=== PATIENT | male | born 1995 | race Caucasian/White ===

== ENCOUNTER 2017-01-15 14:33 | Emergency (ER) | payer OTHER ==
--- NOTE | ~2017-01-15 | CR63 ---
[facility] A Service of [facility] & [facility] RADIOLOGY TEXT RESULTS PATIENT: KENNETH NAJERA LOCATION: SED : [birth year] UNIT #: [id number] AGE: [address]: Radha Phipps SEX: M ORDER DR: [id number] [address] [address] [id number] E MR#: [id number] Acc #: [id number] NAME: KENNETH NAJERA : 1995 SEX: M STUDY DATE/TIME: 01/15/2017 15:10 UNIT: SED ROOM: STUDY DESCRIPTION: CR Chest 2 View Attending Physician: Radha Phipps Pa-C Ordering Physician: Physician Non-Staff MEDICAL IMAGING REPORT This report is preliminary unless electronic signature is present. EXAM PA and lateral chest HISTORY Cough and congestion for 3 weeks. FINDINGS 2 views of the chest demonstrate focal moderately dense subsegmental infiltrate in the posteromedial left lower lobe. Although nonspecific, this could be due to pneumonia. Correlation to the patient's history and symptoms is recommended, and short-term followup chest x-ray is suggested to document resolution after appropriate assessment and treatment. Remainder of the lungs are clear. Cardiac size and pulmonary vascularity are normal. Dictated by... Peter Medel M.D. THIS IS AN ELECTRONICALLY VERIFIED REPORT Peter Medel M.D. at 01/16/2017 3:29 PM DFL/psc TD: 01/16/2017 01:36 JOB #: [id number] MEDICAL IMAGING REPORT
[~2017-01-15 14:33] MED LIST: IBUPROFEN800 MG PO; NO MEDICATIONS; VICODIN 5/1 TAB 5/50 PO
[2017-01-15 14:47] LABS: INFLUENZA A NEG (NEG); INFLUENZA B NEG (NEG)
== END 2017-01-15 15:50 | disposition home or self-care (01) ==
LOC: SED 14:33
PROVIDERS: Physician Assistant
DX: J18.9 Pneumonia, unspecified organism (principal); R11.2 Nausea with vomiting, unspecified; R19.7 Diarrhea, unspecified
CPT/HCPCS: 71020; 87804; 99283